=== PATIENT | female | born 2005 | race Caucasian/White ===

== ENCOUNTER 2025-03-23 17:47 | Emergency (ER) | payer MEDICAID, OTHER ==
[~2025-03-23] VITALS: Ht 152.4 cm; Wt 52.0 kg
[2025-03-23 17:53] VITALS: O2SAT 100
[2025-03-23 18:25] LABS: BASOPHILS % 0.2 % (0.0-2.0); HEMOGLOBIN. 10.9 g/dL (12.0-16.0); LYMPHOCYTES % 17.1 % (20.0-50.0); MEAN CORPUSCULAR HGB CONC 33.9 g/dL (31.0-37.0); MEAN CORPUSCULAR VOLUME 94.5 fL (81.0-99.0); MEAN PLATELET VOLUME 8.3 fl (7.4-10.4); MONOCYTES % 5.7 % (2.0-8.0); PLATELET 287 x1000/uL (130-400); RED BLOOD CELL COUNT 3.39 mill/uL (4.2-5.4)
[2025-03-23 18:33] LABS: CHLORIDE 107 mEq/L (98-107); INR 0.9; POTASSIUM 3.5 mEq/L (3.5-5.1); PROTHROMBIN TIME 9.8 sec (9.6-11.0); SODIUM 137 mEq/L (136-145)
[2025-03-23 18:34] LABS: CALCIUM 8.6 mg/dL (8.7-10.4); CARBON DIOXIDE 25 mEq/L (21-32)
[2025-03-23 18:39] LABS: CREATININE 0.4 mg/dL (0.6-1.0); GLUCOSE 90 mg/dL (70-105); UREA NITROGEN BLOOD 6 mg/dL (9-23)
[2025-03-23 20:07] VITALS: BP 102/60; PULSE 78; RESP 20; TEMP 36.9; O2SAT 98
== END 2025-03-23 20:17 | disposition short-term general hospital (02) ==
LOC: ER 18:06
DX: O46.92 Antepartum hemorrhage, unspecified, second trimester (principal); Z98.890 Other specified postprocedural states; Z3A.26 26 weeks gestation of pregnancy
CPT/HCPCS: 36415; 76805; 80048; 85025; 86592; 86850; 86900; 87340; 99285

== ENCOUNTER 2025-04-08 11:27 | Emergency (ER) | payer OTHER ==
[~2025-04-08] VITALS: Ht 152.4 cm; Wt 48.0 kg
[2025-04-08 11:35] VITALS: O2SAT 100
[2025-04-08] MEDS: LACTATED RINGERS 1,000 ML IV SCH (11:45)
[2025-04-08] MEDS: METOCLOPRAMIDE HCL 10MG/2ML VIAL IV ONE (11:45)
[2025-04-08] MEDS: MECLIZINE 25MG TABLET PO ONE (11:45)
[2025-04-08 12:33] LABS: BASOPHILS % 0.3 % (0.0-2.0); HEMATOCRIT. 28.5 % (36.0-48.0); HEMOGLOBIN. 10.1 g/dL (12.0-16.0); LYMPHOCYTES % 25.5 % (20.0-50.0); MEAN CORPUSCULAR HEMOGLOBIN 32.8 pg (28.0-32.0); MEAN CORPUSCULAR HGB CONC 35.3 g/dL (31.0-37.0); MEAN CORPUSCULAR VOLUME 92.9 fL (81.0-99.0); MEAN PLATELET VOLUME 8.6 fl (7.4-10.4); MONOCYTES % 6.8 % (2.0-8.0); NEUTROPHILS % 66.4 % (40.0-76.0); PLATELET 258 x1000/uL (130-400); RED BLOOD CELL COUNT 3.07 mill/uL (4.2-5.4); RED CELL DISTRIBUTION WIDTH 13.4 % (11.6-14.6); WHITE BLOOD COUNT 7.9 x1000/uL (4.5-11.0)
[2025-04-08 12:34] LABS: CHLORIDE 103 mEq/L (98-107); POTASSIUM 3.5 mEq/L (3.5-5.1); SODIUM 138 mEq/L (136-145)
[2025-04-08 12:35] LABS: CALCIUM 8.8 mg/dL (8.7-10.4); CARBON DIOXIDE 25 mEq/L (21-32)
[2025-04-08 12:40] LABS: CREATININE 0.4 mg/dL (0.6-1.0); GLUCOSE 87 mg/dL (70-105); UREA NITROGEN BLOOD 8 mg/dL (9-23)
[2025-04-08 12:42] LABS: ALANINE AMINOTRANSFERASE 9 IU/L (10-49); ALBUMIN 3.9 g/dL (3.2-4.8); ASPARTATE AMINOTRANSFERASE 16 IU/L (<34); BILIRUBIN TOTAL 0.3 mg/dL (0.1-1.0)
[2025-04-08 13:58] LABS: B-HCG QUANTITATIVE 3474 mIU/mL (<6)
[2025-04-08 14:19] VITALS: BP 101/54; PULSE 79; RESP 17; TEMP 36.5; O2SAT 100
== END 2025-04-08 14:24 | disposition home or self-care (01) ==
LOC: ER 11:30
DX: O99.512 Diseases of the respiratory system complicating pregnancy, second trimester (principal); R07.89 Other chest pain; O26.892 Other specified pregnancy related conditions, second trimester; R42 Dizziness and giddiness; Z3A.26 26 weeks gestation of pregnancy
CPT/HCPCS: 99285; 96374; 76805; 96361; 80053; 84702; 85025; 85379; 36415; 93005; J8597; J2765